=== PATIENT | male | born 1960 | race African-American/Black ===

== ENCOUNTER 2023-09-21 11:25 | Emergency (ER) | payer BC ==
[~2023-09-21] VITALS: Ht 182.9 cm; Wt 90.0 kg
[2023-09-21 11:32] VITALS: TEMP 98.5; O2SAT 97
[2023-09-21] MEDS ORDERED: HYDROCODONE/ACETAMINOPHEN 5/325MG TABLET PO ONE (11:45)
[2023-09-21] MEDS ORDERED: PILOCARPINE HCL 2% OPHTH DROPS 15ML RIGHTEYE STA (12:06)
[2023-09-21] MEDS ORDERED: BRIMONIDINE 0.2% OPHTH DROPS 5ML RIGHTEYE STA (12:06)
[2023-09-21] MEDS ORDERED: TIMOLOL MALEATE 0.5% OPHTH DROPS 5ML RIGHTEYE STA (12:06)
[2023-09-21] MEDS ORDERED: ACETAZOLAMIDE 500MG ER CAPSULE PO ONE (12:15)
[2023-09-21] MEDS ORDERED: ONDANSETRON 4MG ODT PO ONE (12:15)
[2023-09-21] MEDS ORDERED: HYDROCODONE/ACETAMINOPHEN 5/325MG TABLET PO NR (12:45)
[2023-09-21] MEDS ORDERED: ONDANSETRON 4MG ODT PO NR (12:45)
[2023-09-21 12:55] VITALS: BP 170/91; PULSE 64; RESP 20
== END 2023-09-21 17:06 | disposition home or self-care (01) ==
LOC: ER 11:25
DX: H40.20X0 Unspecified primary angle-closure glaucoma, stage unspecified (principal); I10 Essential (primary) hypertension; H40.9 Unspecified glaucoma
CPT/HCPCS: 99284; 70450; Q0162